=== PATIENT | female | born 2005 | race Caucasian/White ===

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

== ENCOUNTER 2024-10-02 08:53 | Emergency (ER) | payer MEDICAID ==
[~2024-10-02] VITALS: Ht 165.1 cm; Wt 47.0 kg
[~2024-10-02 08:53] MED LIST changes: +DIVA-75 PO; +ESCI5SOL2 MT; -FLUO20CA39 MT; -LEVE750T10 MT; -LORA-250 PO; -PY25 MT; -TOPI25TA48 MT; -TRAZ-251 PO
[2024-10-02 08:55] VITALS: O2SAT 100
[2024-10-02 10:09] LABS: CHLORIDE 104 mEq/L (98-107); POTASSIUM 3.3 mEq/L (3.5-5.1); SODIUM 140 mEq/L (136-145)
[2024-10-02 10:10] LABS: CARBON DIOXIDE 28 mEq/L (21-32)
[2024-10-02 10:11] LABS: CALCIUM 9.1 mg/dL (8.7-10.4)
[2024-10-02 10:12] LABS: BASOPHILS % 0.2 % (0.0-2.0); HEMATOCRIT. 29.6 % (36.0-48.0); HEMOGLOBIN. 9.6 g/dL (12.0-16.0); LYMPHOCYTES % 8.1 % (20.0-50.0); MEAN CORPUSCULAR HEMOGLOBIN 32.2 pg (28.0-32.0); MEAN CORPUSCULAR HGB CONC 32.4 g/dL (31.0-37.0); MEAN CORPUSCULAR VOLUME 99.5 fL (81.0-99.0); MEAN PLATELET VOLUME 7.2 fl (7.4-10.4); MONOCYTES % 3.5 % (2.0-8.0); NEUTROPHILS % 88.2 % (40.0-76.0); PLATELET 299 x1000/uL (130-400); RED BLOOD CELL COUNT 2.97 mill/uL (4.2-5.4); RED CELL DISTRIBUTION WIDTH 15.5 % (11.6-14.6); WHITE BLOOD COUNT 14.5 x1000/uL (4.5-11.0)
[2024-10-02 10:15] LABS: CREATININE 0.5 mg/dL (0.6-1.0); GLUCOSE 105 mg/dL (70-105); UREA NITROGEN BLOOD 15 mg/dL (9-23)
[2024-10-02 10:17] LABS: ALANINE AMINOTRANSFERASE 11 IU/L (10-49); ALBUMIN 3.8 g/dL (3.2-4.8); ASPARTATE AMINOTRANSFERASE 15 IU/L (<34)
[2024-10-02 10:18] LABS: BILIRUBIN TOTAL 0.5 mg/dL (0.1-1.0); PROTEIN TOTAL 6.8 g/dL (6.0-8.3)
[2024-10-02 10:22] LABS: HCG SCREEN NEGATIVE
[2024-10-02] MEDS: KETOROLAC 30MG/ML VIAL IV ONE (10:22)
[2024-10-02] MEDS: METOCLOPRAMIDE HCL 10MG/2ML VIAL IV ONE (10:22)
[2024-10-02] MEDS: ACETAMINOPHEN 325MG TABLET PO ONE (10:22)
[2024-10-02 11:16] VITALS: BP 107/62; PULSE 72; RESP 16; TEMP 36.6; O2SAT 100
== END 2024-10-02 11:17 | disposition home or self-care (01) ==
LOC: ER 09:14
DX: R56.9 Unspecified convulsions (principal); Z79.899 Other long term (current) drug therapy
CPT/HCPCS: 80053; 84703; 85025; 36415; 70450; 72125; 96374; 96375; 99285; J1885; J2765; Z7610 ×2; A4606